=== PATIENT | female | born 1980 | race Caucasian/White ===

== ENCOUNTER 2022-01-24 10:59 | Outpatient (CLI) | payer OTHER, SELFPAY | END 2022-01-24 11:00 | disposition home or self-care (01) | LOC: LKVREF 11:01 | PROVIDERS: PCP Pediatrics; Visit Provider Physician Assistant | DX: Z01.419 Encounter for gynecological examination (general) (routine) without abnormal findings (principal); N92.1 Excessive and frequent menstruation with irregular cycle | CPT/HCPCS: 84443 ==

== ENCOUNTER 2023-03-09 09:31 | Outpatient (CLI) | payer BC, SELFPAY | END 2023-03-09 09:32 | disposition home or self-care (01) | LOC: NFLDREF 15:33 | PROVIDERS: PCP Pediatrics; Referring Provider Pediatrics; Visit Provider Physician Assistant | DX: Z13.220 Encounter for screening for lipoid disorders (principal); Z13.1 Encounter for screening for diabetes mellitus | CPT/HCPCS: 80061; 82947 ==

== ENCOUNTER 2023-03-16 10:33 | Outpatient (CLI) | payer BC, SELFPAY ==
--- NOTE | 2023-03-16 10:37 | CRLHL7_ITS ---
For Patients: As a result of the Cures Act, medical imaging exams and procedure reports are released immediately into your electronic medical record. You may view this report before your referring provider. If you have questions, please contact your health care provider. BILATERAL SCREENING MAMMOGRAM WITH COMPUTER-AIDED DETECTION AND TOMOSYNTHESIS TECHNIQUE: CC and MLO views were obtained. These mammographic images have been obtained using full-field digital technique. These mammographic images were interpreted with the benefit of computer-aided detection. Breast Tomosynthesis was used in this interpretation. COMPARISON FILM: 02/16/21, 09/12/19, 07/13/10. FINDINGS: There are scattered areas of fibroglandular density IMPRESSION: There is no radiographic evidence for malignancy. ASSESSMENT: BI-RADS Category 1: Negative RECOMMENDATION: Routine screening mammogram in 1 year. A lay language report of this examination will be provided to the patient. Simeon Alford M.D. Diagnostic Radiologist [email or web address] ZABRINA/cat / be/Dictated by: Simeon Alford MD @ 03/16/2023 12:35:00 PM (Electronically Signed)
== END 2023-03-16 10:34 | disposition home or self-care (01) ==
LOC: MAMMO 10:33
PROVIDERS: Visit Provider Physician Assistant
DX: Z12.31 Encounter for screening mammogram for malignant neoplasm of breast (principal)
CPT/HCPCS: 77063; 77067

== ENCOUNTER 2024-05-20 09:39 | Outpatient (CLI) | payer BC, SELFPAY | END 2024-05-20 09:40 | disposition home or self-care (01) | LOC: LKVREF 09:40 | PROVIDERS: Visit Provider Physician Assistant | DX: F41.9 Anxiety disorder, unspecified (principal) | CPT/HCPCS: 84443 ==

== ENCOUNTER 2024-09-30 08:00 | Outpatient (CLI) | payer BC, SELFPAY ==
--- NOTE | 2024-09-30 09:17 | P.ANES_ITS ---
Anesthesia Charges Start Date/Time Anesthesia Start Date: 09/30/24 Anesthesia Start Time: 08:50 Stop Date/Time Anesthesia Stop Date: 09/30/24 Anesthesia Stop Time: 09:18 Coding CPT Codes CPT Codes: KOBY LWR INTST NDSC NOS - [id number] ([id number]) P2 - PATIENT W/MILD SYST DISEASE, QK - ESTIMATING ENGINEER 2-4 CNCRNT ANES PROC, QX - CAR REPAIR SUPERVISOR SVC W/ MD MED DIRECTION
--- NOTE | 2024-09-30 09:17 | W.ANESCHARGE ---
Anesthesia Charges Start Date/Time Anesthesia Start Date: 09/30/24 Anesthesia Start Time: 08:50 Stop Date/Time Anesthesia Stop Date: 09/30/24 Anesthesia Stop Time: 09:18 Coding CPT Codes CPT Codes: KOBY LWR INTST NDSC NOS - [id number] ([id number]) P2 - PATIENT W/MILD SYST DISEASE, QK - PRINTING PRESS OPERATOR APPRENTICE 2-4 CNCRNT ANES PROC, QX - FIELD ASSOCIATE SVC W/ MD MED DIRECTION
--- NOTE | 2024-09-30 09:22 | P.ANES_ITS ---
Anesthesia Charges Start Date/Time Anesthesia Start Date: 09/30/24 Anesthesia Start Time: 08:50 Stop Date/Time Anesthesia Stop Date: 09/30/24 Anesthesia Stop Time: 09:18 Coding CPT Codes CPT Codes: KOBY LWR INTST NDSC NOS - [id number] ([id number]) P2 - PATIENT W/MILD SYST DISEASE, QK - DIRECTOR OF PRIMARY CARE 2-4 CNCRNT ANES PROC, QX - PLATER SUPERVISOR SVC W/ MD MED DIRECTION
--- NOTE | 2024-09-30 09:22 | W.ANESCHARGE ---
Anesthesia Charges Start Date/Time Anesthesia Start Date: 09/30/24 Anesthesia Start Time: 08:50 Stop Date/Time Anesthesia Stop Date: 09/30/24 Anesthesia Stop Time: 09:18 Coding CPT Codes CPT Codes: KOBY LWR INTST NDSC NOS - [id number] ([id number]) P2 - PATIENT W/MILD SYST DISEASE, QK - MUSIC THEORY TEACHER 2-4 CNCRNT ANES PROC, QX - LAUNDRY TECHNICIAN SVC W/ MD MED DIRECTION
== END 2024-09-30 08:01 | disposition home or self-care (01) ==
LOC: OP CLINIC 08:00
PROVIDERS: Visit Provider Surgery
DX: Z12.11 Encounter for screening for malignant neoplasm of colon (principal); D49.0 Neoplasm of unspecified behavior of digestive system
CPT/HCPCS: 00811; 00812; 45380; 88305; J2704

== ENCOUNTER 2024-10-31 14:26 | Outpatient (CLI) | payer BC, SELFPAY ==
--- NOTE | 2024-10-31 14:40 | CRLHL7_ITS ---
For Patients: As a result of the Century Cures Act, medical imaging exams and procedure reports are released immediately into your electronic medical record. You may view this report before your referring provider. If you have questions, please contact your health care provider. INDICATION: BILATERAL SCREENING MAMMOGRAM, ASYMPTOMATIC 44 Y/O FEMALE COMPARISON: 03/16/2023, 02/16/2021, 09/18/2019 TECHNIQUE: Digital mammogram in CC and MLO projections including computer-aided detection (CAD) and tomosynthesis. BREAST COMPOSITION: There are scattered areas of fibroglandular density. FINDINGS: No suspicious findings. ASSESSMENT: BI-RADS 1 Negative RECOMMENDATION: Annual screening mammogram. A lay language report of this examination will be provided to the patient. Dictated by: Laura Hernadez MD @ 11/02/2024 14:32:42 (Electronically Signed)
== END 2024-10-31 14:27 | disposition home or self-care (01) ==
PROVIDERS: Visit Provider Physician Assistant
DX: Z12.31 Encounter for screening mammogram for malignant neoplasm of breast (principal)
CPT/HCPCS: 77063; 77067

== ENCOUNTER 2025-03-05 08:50 | Outpatient (CLI) | payer BC, SELFPAY | END 2025-03-05 08:51 | disposition home or self-care (01) | PROVIDERS: Visit Provider Family Medicine | DX: Z00.00 Encounter for general adult medical examination without abnormal findings (principal); Z13.0 Encounter for screening for diseases of the blood and blood-forming organs and certain disorders involving the immune mechanism | CPT/HCPCS: 80053; 82728; 83540; 83550 ==